=== PATIENT | female | born 1940 | race Native Hawaiian/Other Pacific Islander ===

== ENCOUNTER 2022-05-22 07:00 | Outpatient (CLI) | payer MEDICARE, BC, MEDICAID, SELFPAY | END 2022-05-22 07:01 | disposition home or self-care (01) | PROVIDERS: PCP Family Medicine; Visit Provider Internal Medicine Gastroenterology | DX: Z12.11 Encounter for screening for malignant neoplasm of colon (principal); K64.8 Other hemorrhoids; K57.30 Diverticulosis of large intestine without perforation or abscess without bleeding; Z86.010 Personal history of colon polyps; Z98.0 Intestinal bypass and anastomosis status | CPT/HCPCS: 45380; 88305; J2250; J3010 ==